=== PATIENT | female | born 1950 | race Caucasian/White ===

== ENCOUNTER 2018-11-04 18:29 | Emergency (ER) | payer SELFPAY ==
[~2018-11-04] VITALS: Ht 157.5 cm; Wt 47.0 kg
[2018-11-04 18:46] VITALS: BP 109/56
[2018-11-04] MEDS ORDERED: METF-414 PO (18:49)
== END 2018-11-04 22:00 | disposition left against medical advice (07) ==
LOC: ER 18:29
DX: Z53.21 Procedure and treatment not carried out due to patient leaving prior to being seen by health care provider (principal)